=== PATIENT | male | born 1970 | race Hispanic/Latino ===

== ENCOUNTER 2019-09-07 18:41 | Emergency (ER) | payer OTHER ==
[~2019-09-07 18:41] MED LIST: ASPI-555 PO; METF-446 PO; NITR4.1S2 TL; PRAV20TA4 PO; TRAM50TA4 PO; VALS160T29 PO
[2019-09-07] MEDS ORDERED: ASPIRIN 325 MG TABLET ONE (19:00)
[2019-09-07 19:15] LABS: BASOPHILS % (AUTO) 0.3 % (0.0-5.0); EOSINOPHILS % (AUTO) 0.5 % (0.0-8.0); HEMATOCRIT 43.4 % (42-54); LYMPHOCYTES % (AUTO) 4.1 % (21.0-51.0); MEAN CORPUSCULAR HEMOGLOBIN 32.4 pg (27.0-33.0); MEAN CORPUSCULAR HGB CONC 36.9 g/dL (32.0-36.0); MEAN CORPUSCULAR VOLUME 87.9 fL (79-99); MONOCYTES % (AUTO) 5.3 % (3.0-13.0); NEUTROPHILS % (AUTO) 89.5 % (40.0-77.0); PLATELET COUNT (AUTO) 133 K/uL (130-400); RED BLOOD CELL COUNT(AUTO) 4.94 MIL/uL (4.50-6.20); RED CELL DISTRIBUTION WIDTH 12.2 % (11.0-15.5); WHITE BLOOD COUNT (AUTO) 7.4 K/uL (4.8-10.8)
[2019-09-07 19:27] LABS: CREATININE 0.7 mg/dL (0.5-1.5); POTASSIUM 3.8 mmol/L (3.5-5.1)
[2019-09-07 19:33] LABS: ALBUMIN 3.6 g/dL (3.5-5.0); BILIRUBIN,TOTAL 2.5 mg/dL (0.2-1.0)
[2019-09-07 19:37] LABS: INR 0.98 (0.85-1.15); PARTIAL THROMBOPLASTIN TIME 24.3 SEC (26.3-35.5); PROTHROMBIN TIME 10.3 SEC (9.6-11.6)
[2019-09-07 19:49] LABS: B-TYPE NATRIURETIC PEPTIDE < 5 pg/mL (0-100)
[2019-09-07] MEDS ORDERED: SODIUM CHLORIDE 0.9% 1000ML 1,000 ML IV ONE (20:10)
[2019-09-07] MEDS ORDERED: MAG HYDROX/AL HYDROX/SIMETH ES 30 ML SUSP UDCUP ONE (20:11)
[2019-09-07] MEDS ORDERED: KETOROLAC TROMETHAMINE 15MG/ML ONE (20:11)
[2019-09-07] MEDS ORDERED: FAMOTIDINE/PF 20 MG/2 ML VIAL IV ONE (20:12)
[2019-09-07] MEDS ORDERED: LIDOCAINE HCL 2% VISCOUS 15 ML UDCUP ONE (20:12)
[2019-09-07] MEDS ORDERED: IOHEXOL-350 75 ML VIAL IV ONE (20:46)
== END 2019-09-07 22:19 | disposition home or self-care (01) ==
LOC: EDH 18:41
DX: K29.70 Gastritis, unspecified, without bleeding (principal); R07.89 Other chest pain; I10 Essential (primary) hypertension; E11.9 Type 2 diabetes mellitus without complications
CPT/HCPCS: 36415; 71045; 80053; 82550; 83690; 83880; 84484 ×2; 85025; 85610; 85730; 93005 ×2; 96361; 96374; 96375; 99285; J1885; J3490; J7030; Q9967

== ENCOUNTER → 2021-07-18 | Outpatient (CLI) | payer OTHER ==
[~2021-07-18] MED LIST changes: -ASPI-555 PO; +ASPI-556 PO
== END | disposition home or self-care (01) ==
LOC: RAH 09:07
PROVIDERS: ATTEND Family Medicine
DX: T14.90XA Injury, unspecified, initial encounter (principal); M16.11 Unilateral primary osteoarthritis, right hip; M17.12 Unilateral primary osteoarthritis, left knee; M47.816 Spondylosis without myelopathy or radiculopathy, lumbar region; M43.5X6 Other recurrent vertebral dislocation, lumbar region; M41.86 Other forms of scoliosis, lumbar region; X58.XXXA Exposure to other specified factors, initial encounter; Y93.89 Activity, other specified; Y92.89 Other specified places as the place of occurrence of the external cause; Y99.8 Other external cause status
CPT/HCPCS: 72100; 73502; 73562

== ENCOUNTER → 2021-12-14 | Outpatient (CLI) | payer OTHER | END | disposition home or self-care (01) | LOC: LAB 11:22 | PROVIDERS: ATTEND Internal Medicine Cardiovascular Disease | DX: E03.9 Hypothyroidism, unspecified (principal) | CPT/HCPCS: 36415; 84443 ==

== ENCOUNTER 2023-02-11 05:04 | Emergency (ER) | payer OTHER ==
[~2023-02-11] VITALS: Ht 195.6 cm; Wt 111.6 kg
[~2023-02-11 05:04] MED LIST changes: +ACET-2079 PO; +CEPH500C2 PO; +IBUP-2070 PO; +MUPI22OI2 TP
[2023-02-11 05:16] VITALS: BP 137/74; PULSE 78; RESP 16; O2SAT 96
[2023-02-11] MEDS ORDERED: ASPIRIN 325MG TAB PO ONE (05:30)
[2023-02-11 05:31] LABS: BASOPHILS % (AUTO) 0.6 % (0.0-5.0); EOSINOPHILS % (AUTO) 1.2 % (0.0-8.0); MEAN CORPUSCULAR HEMOGLOBIN 32.2 pg (27.0-33.0); MEAN CORPUSCULAR HGB CONC 36.8 g/dL (32.0-36.0); MEAN CORPUSCULAR VOLUME 87.4 fL (79-99); MONOCYTES % (AUTO) 9.3 % (3.0-13.0); NEUTROPHILS % (AUTO) 70.7 % (40.0-77.0); PLATELET COUNT (AUTO) 152 K/uL (130-400); RED BLOOD CELL COUNT(AUTO) 4.69 MIL/uL (4.50-6.20); RED CELL DISTRIBUTION WIDTH 12.3 % (11.0-15.5); WHITE BLOOD COUNT (AUTO) 5.1 K/uL (4.8-10.8)
[2023-02-11 05:38] LABS: CREATININE 0.7 mg/dL (0.5-1.5); POTASSIUM 3.6 mmol/L (3.5-5.1)
[2023-02-11 05:40] LABS: INR 0.96 (0.85-1.15); PROTHROMBIN TIME 11.2 SEC (9.6-11.6)
[2023-02-11 05:42] LABS: PARTIAL THROMBOPLASTIN TIME 26.3 SEC (26.3-35.5)
[2023-02-11 05:48] LABS: ALBUMIN 3.4 g/dL (3.5-5.0); MAGNESIUM 1.6 mg/dL (1.80-2.40); TOTAL PROTEIN, SERUM 6.8 g/dL (6.0-8.3)
[2023-02-11 06:02] LABS: B-TYPE NATRIURETIC PEPTIDE < 5 pg/mL (0-100)
[2023-02-11] MEDS ORDERED: MAGNESIUM 2GM PREMIX 50ML 50 ML IV SCH (08:00)
[2023-02-11] MEDS ORDERED: ACETAMINOPHEN 500 MG TABLET PO PRN (08:30)
[2023-02-11] MEDS ORDERED: ONDANSETRON 4MG INJ IVP PRN (08:30)
[2023-02-11] MEDS ORDERED: PANTOPRAZOLE 40 MG TAB DR PO SCH (09:00)
[2023-02-11 10:17] LABS: HEMOGLOBIN A1C 8.3 % (4.0-6.0)
[2023-02-12] MEDS ORDERED: ASPIRIN 81 MG EC TAB PO SCH (09:00)
== END 2023-02-11 09:04 | disposition left against medical advice (07) ==
LOC: EDH 05:04 → EDHIP 07:57 → UNDOADMOB 07:57 → UNDODISOB 08:25 → EDHIP 09:04
DX: I20.0 Unstable angina (principal); E11.9 Type 2 diabetes mellitus without complications; I10 Essential (primary) hypertension; E78.00 Pure hypercholesterolemia, unspecified; E78.5 Hyperlipidemia, unspecified; Z79.84 Long term (current) use of oral hypoglycemic drugs; Z79.82 Long term (current) use of aspirin; Z79.899 Other long term (current) drug therapy; Z90.49 Acquired absence of other specified parts of digestive tract
CPT/HCPCS: 36415; 71045; 80053; 80061; 83036; 83735; 83880; 84443; 84484; 85025; 85610; 85730; 93005; G0378

== ENCOUNTER 2024-03-07 00:22 | Emergency (ER) | payer OTHER, MEDICARE ==
[~2024-03-07] VITALS: Ht 195.6 cm; Wt 100.7 kg
[2024-03-07 01:10] LABS: BASOPHILS # (AUTO) 0.02 K/uL (0.00-0.20); BASOPHILS % (AUTO) 0.4 % (0.0-5.0); EOSINOPHILS # (AUTO) 0.06 K/uL (0.00-0.70); EOSINOPHILS % (AUTO) 1.1 % (0.0-8.0); HEMATOCRIT 39.7 % (42-54); IMMATURE GRANULOCYTE ABSOLUTE 0.03 K/uL (0-1); LYMPHOCYTES # (AUTO) 1.1 K/uL (1.0-4.8); LYMPHOCYTES % (AUTO) 20.8 % (21.0-51.0); MEAN CORPUSCULAR HEMOGLOBIN 32.7 pg (27.0-33.0); MEAN CORPUSCULAR HGB CONC 37.3 g/dL (32.0-36.0); MEAN CORPUSCULAR VOLUME 87.8 fL (79-99); MONOCYTES # (AUTO) 0.7 K/uL (0.1-1.0); MONOCYTES % (AUTO) 12.4 % (3.0-13.0); NEUTROPHILS # (AUTO) 3.4 K/uL (1.8-7.7); NEUTROPHILS % (AUTO) 64.7 % (40.0-77.0); PLATELET COUNT (AUTO) 167 K/uL (130-400); RED BLOOD CELL COUNT(AUTO) 4.52 MIL/uL (4.50-6.20); RED CELL DISTRIBUTION WIDTH 12.7 % (11.0-15.5); WHITE BLOOD COUNT (AUTO) 5.3 K/uL (4.8-10.8)
[2024-03-07] MEDS: 0.9%NACL 1000ML 1,000 ML IV ONE (01:10)
[2024-03-07] MEDS: MORPHINE 4 MG SYG IVP ONE (01:10)
[2024-03-07] MEDS: ONDANSETRON 4MG INJ IVP ONE (01:10)
[2024-03-07] MEDS: PANTOPRAZOLE 40 MG/VIAL IVP ONE (01:11)
[2024-03-07 01:33] LABS: B-TYPE NATRIURETIC PEPTIDE 8 pg/mL (0-100)
[2024-03-07 01:37] LABS: ALBUMIN 3.3 g/dL (3.5-5.0); BILIRUBIN,TOTAL 1.8 mg/dL (0.2-1.0); CREATININE 0.8 mg/dL (0.5-1.3); POTASSIUM 3.9 mmol/L (3.5-5.1); TOTAL PROTEIN, SERUM 6.6 g/dL (6.0-8.3)
[2024-03-07] MEDS ORDERED: IOHEXOL 350 MG/ML 100ML INFUS..BTL IV ONE (02:57)
[2024-03-07] MEDS: MAG/ALUM/SIMETH 30 ML UDCUP PO ONE (04:58)
[2024-03-07] MEDS: LIDOCAINE HCL 2% VISCOUS 15 ML UDCUP PO ONE (04:58)
[2024-03-07] MEDS: PROMETHAZINE HCL 25 MG/ML 1ML AMPULE IM ONE (04:58)
[2024-03-07] MEDS: DICYCLOMINE HCL 10 MG/5 ML ML PO ONE (04:58)
[2024-03-07 06:10] VITALS: BP 124/78; PULSE 88; RESP 16; O2SAT 99
== END 2024-03-07 06:13 | disposition home or self-care (01) ==
LOC: EDH 00:22
DX: K31.84 Gastroparesis (principal); E11.43 Type 2 diabetes mellitus with diabetic autonomic (poly)neuropathy; I10 Essential (primary) hypertension; E78.00 Pure hypercholesterolemia, unspecified; I48.91 Unspecified atrial fibrillation; M19.90 Unspecified osteoarthritis, unspecified site; Z79.82 Long term (current) use of aspirin; Z79.84 Long term (current) use of oral hypoglycemic drugs; Z79.899 Other long term (current) drug therapy; Z90.49 Acquired absence of other specified parts of digestive tract; Z96.652 Presence of left artificial knee joint; Z98.890 Other specified postprocedural states
CPT/HCPCS: 99285; 74177; 96374; 96375; 71045; 82550; 84484; 80053; 83880; 83690; 85025; 82948; 36415; 93005; 96372; J7030; J2550; J2405; J2270; J2470; Q9967

== ENCOUNTER 2024-03-23 23:49 | Emergency (ER) | payer OTHER, MEDICARE ==
[~2024-03-23] VITALS: Ht 195.6 cm; Wt 102.1 kg
[2024-03-24 00:31] LABS: CREATININE 0.7 mg/dL (0.5-1.3); POTASSIUM 3.1 mmol/L (3.5-5.1)
[2024-03-24 00:34] LABS: INR 1.06 (0.85-1.15); PROTHROMBIN TIME 11.4 SEC (9.6-11.6)
[2024-03-24 00:39] LABS: MAGNESIUM 1.6 mg/dL (1.80-2.40)
[2024-03-24 00:45] LABS: BASOPHILS # (AUTO) 0.03 K/uL (0.00-0.20); BASOPHILS % (AUTO) 0.6 % (0.0-5.0); EOSINOPHILS # (AUTO) 0.09 K/uL (0.00-0.70); EOSINOPHILS % (AUTO) 1.9 % (0.0-8.0); HEMATOCRIT 35.2 % (42-54); IMMATURE GRANULOCYTE ABSOLUTE 0.01 K/uL (0-1); LYMPHOCYTES # (AUTO) 0.9 K/uL (1.0-4.8); MEAN CORPUSCULAR HEMOGLOBIN 33.9 pg (27.0-33.0); MEAN CORPUSCULAR HGB CONC 37.2 g/dL (32.0-36.0); MEAN CORPUSCULAR VOLUME 91.2 fL (79-99); MONOCYTES # (AUTO) 0.5 K/uL (0.1-1.0); MONOCYTES % (AUTO) 9.6 % (3.0-13.0); NEUTROPHILS # (AUTO) 3.2 K/uL (1.8-7.7); NEUTROPHILS % (AUTO) 68.7 % (40.0-77.0); PLATELET COUNT (AUTO) 150 K/uL (130-400); RED BLOOD CELL COUNT(AUTO) 3.86 MIL/uL (4.50-6.20); RED CELL DISTRIBUTION WIDTH 13.2 % (11.0-15.5); WHITE BLOOD COUNT (AUTO) 4.7 K/uL (4.8-10.8)
[2024-03-24 00:51] LABS: PARTIAL THROMBOPLASTIN TIME 26.5 SEC (26.3-35.5)
[2024-03-24 00:55] LABS: ALBUMIN 3.2 g/dL (3.5-5.0); BILIRUBIN,TOTAL 2.2 mg/dL (0.2-1.0); TOTAL PROTEIN, SERUM 6.4 g/dL (6.0-8.3)
[2024-03-24 01:10] LABS: B-TYPE NATRIURETIC PEPTIDE 11 pg/mL (0-100)
[2024-03-24] MEDS: POTASSIUM CHLORIDE 10% ELIXIR 20 MEQ/15 ML UDCUP PO ONE (02:38)
[2024-03-24 02:49] VITALS: BP 150/60; PULSE 96; RESP 16; TEMP 97.6; O2SAT 98
== END 2024-03-24 02:50 | disposition home or self-care (01) ==
LOC: EDH 23:49
DX: I83.893 Varicose veins of bilateral lower extremities with other complications (principal); I10 Essential (primary) hypertension; E78.00 Pure hypercholesterolemia, unspecified; E11.9 Type 2 diabetes mellitus without complications; I48.91 Unspecified atrial fibrillation; M19.90 Unspecified osteoarthritis, unspecified site; Z86.73 Personal history of transient ischemic attack (TIA), and cerebral infarction without residual deficits; Z79.899 Other long term (current) drug therapy; Z79.2 Long term (current) use of antibiotics; Z79.82 Long term (current) use of aspirin; Z79.84 Long term (current) use of oral hypoglycemic drugs; Z90.49 Acquired absence of other specified parts of digestive tract; Z96.652 Presence of left artificial knee joint; Z98.890 Other specified postprocedural states
CPT/HCPCS: 36415; 71045; 80053; 83735; 83880; 84484; 85025; 85610; 85730; 93005; 93971

== ENCOUNTER 2025-01-09 22:21 | Emergency (ER) | payer OTHER, MEDICAID ==
[~2025-01-09] VITALS: Ht 195.6 cm; Wt 108.9 kg
[~2025-01-09 22:21] MED LIST changes: -PRAV20TA4 PO; +PRAV20TA59 PO
[2025-01-09 22:29] VITALS: BP 166/88; PULSE 20; RESP 20; TEMP 98.4; O2SAT 97
[2025-01-09] MEDS: ketOROlac 60 MG VIAL (30MG/ML) IM ONE (22:49)
[2025-01-09] MEDS: HYDROcodone/APAP 5/325 1 TAB TABLET PO ONE (22:50)
[2025-01-09] MEDS ORDERED: MELO-108 PO (23:47)
--- NOTE | 2025-01-09 23:47 | ERN ---
ED Note History of Present Illness Stated Complaint: LEFT KNEE Chief Complaint: Knee Injury/Swelling Time Seen by MD: 22:23 Time Seen by Midlevel: 22:33 Dictation: The patient is a 54-year-old male with past medical history arthritis, hyperlipidemia, hypertension who presents to the emergency department with complaints of nontraumatic left knee pain for two weeks. Patient reports he had a knee surgery done in 2020. Patient denies any fevers. Allergies: Coded Allergies: No Known Allergies (Unverified Allergy, Unknown, 11/10/22) No Known Drug Allergies (Unverified Allergy, Unknown, 10/28/16) Home Meds Active Scripts Acetaminophen with Codeine (Acetaminophen-Cod #3 Tablet) 1 Each Tablet, 1 EACH PO QID for 7 Days, #25 TAB 0 Refills Prov:NELSON AYERS MD 06/07/21 Ibuprofen (Ibuprofen) 600 Mg Tablet, 600 MG PO Q6H PRN for PAIN, #30 TAB 0 Refills Prov:NELSON AYERS MD 06/07/21 Mupirocin (Mupirocin Ointment) 22 Gm Oint, 1 GM TP BID for 10 Days, #30 G Prov:YAQUELIN ABREU 05/24/21 Cephalexin (Cephalexin) 500 Mg Capsule, 500 MG PO TID for 10 Days, #30 CAP Prov:YAQUELIN ABREU 05/24/21 Reported Medications Nitroglycerin (Nitroglycerin) 4.1 Gm [place], 0.4 MG TL AD PRN for CHEST PAIN, CAP 10/28/16 Tramadol Hcl (Tramadol HCl) 50 Mg Tablet, 50 MG PO BID PRN for PAIN LEVEL 5 TO 10, TAB 10/28/16 Aspirin (Aspir 81) 81 Mg Tablet.dr, 81 MG PO DAILY, TAB 10/28/16 Valsartan (Valsartan) 160 Mg Tablet, 160 MG PO DAILY, TAB 10/28/16 Pravastatin Sodium (Pravastatin Sodium) 20 Mg Tablet, 20 MG PO HS, TAB 10/28/16 Metformin HCl (Metformin HCl) 1,000 Mg Tablet, 1000 MG PO BID, TAB 10/28/16 Past Medical History Past Medical History: A-Fib, Arthritis, CVA, Diabetes-Type II, High Cholesterol, Hypertension, TIA Additional Past Medical Hx: HEART ARRYTHMIA Surgical History: Cholecystectomy Surgical History Other: LEFT KNEE TOTAL REPLACEMENT; L4-L5 FUSION, RT HIP Family History: CAD, DM, HTN Social History: ETOH, Lives with family RN Note Reviewed/Agreed w/PFSH: Yes Review of System Dictation Constitutional: Negative for fever,chills, and weight loss Eyes: Negative for injury, pain,redness, and discharge ENT: Negative for injury,pain or swelling Cardiovascular: Negative for chest pain, palpitations, and edema Respiratory: Negative for shortness of breath, cough, and wheezing, Abdomen/GI: Negative for abdominal pain, nausea, vomiting, diarrhea, and constipation Back: Negative for injury and pain : Negative for injury, bleeding and discharge MS/Extremity: Positive for left knee pain Skin: Negative for rash, and discoloration Neuro: Negative for headache, weakness, numbness, tingling, and seizure Psych: Negative for suicide ideation, homicidal ideation, and hallucinations Initial Vital Sign VS Vital Signs Date Time Temp Pulse Resp B/P (MAP) Pulse Ox O2 Delivery O2 Flow Rate FiO2 01/09/25 22:23 98.4 98 20 166/88 97 Room Air 01/09/25 22:29 0 21 Physical Exam Dictation Vital Signs reviewed General Appearance: Alert, oriented x 3, no acute distress, well developed, nourished. Head and Face: non-traumatic. Eyes: PERRL, pink conjunctivas, eyelid no trauma, anterior chamber with arcus senilis. Ears: Pinnas intact and no signs of trauma or erythema ear canals clear and no discharge TM no erythema Nose: No discharge, no bleeding. Oropharynx: Mouth normal, tongue pink. pharynx clear,no erythema, tonsils no exudates, no abscesses noted, mucous membrane moist Neck: Supple, non-tender, no thyromegaly, no masses, no JVD, no bruits Breast:Deferred Chest:No tenderness, no crepitus, no paradoxical movement, no retractions Lungs:Clear, well-ventilated, symmetric, no rales, no wheezing, no rhonchi, no stridor, good breath sounds bilaterally Heart: Regular rate, regular rhythm, no murmur, no gallops Vascular: no peripheral edema, dorsalis pedis 3+ bilaterally Abdomen: Soft, positive bowel sounds, nondistended, no guarding, nontender, no rebound, no masses no hepatomegaly, no splenomegaly, no Santiago's sign, no hernias. Rectal: Deferred Genital: Deferred Neurological: Normal speech, motor function intact, sensory function intact Musculoskeletal: Neck nontender, full range of motion, back nontender, full range of motion, Extremities: nontender, full range of motion left knee tenderness Skin: Color pink, dry, no turgor, no rash, no lacerations, no abrasions, no contusions. Lymphatic: Deferred Results (Laboratory/Radiology) Labs Reviewed?: Yes ED Course ED Course Orders Procedure Category Date Status Time Knee 3vws Lt RAD 01/09/25 Taken 22:36 Ketorolac 60mg/2ml PHA 01/09/25 Complete (Toradol 60mg/2ml) 23:00 Hydrocodone/Apap PHA 01/09/25 Complete 5/325 (Beatrice 5/325mg) 23:00 Current Medications Medications (Trade) Dose Ordered Sig/Janene Route PRN Reason Start Time Stop Time Status Last Admin Dose Admin Acetaminophen/ Hydrocodone Bitart (NORco 5/325MG) 1 tab ONCE ONCE PO 01/09/25 23:00 01/09/25 23:01 DC 01/09/25 22:50 Ketorolac Tromethamine (toRADol 60MG/ 2ML) 60 mg ONCE ONCE IM 01/09/25 23:00 01/09/25 23:01 DC 01/09/25 22:49 Vital Signs Date Time Temp Pulse Resp B/P (MAP) Pulse Ox O2 Delivery O2 Flow Rate FiO2 01/09/25 22:29 98.4 20 20 166/88 97 Room Air* 0 21 01/09/25 22:23 98.4 98 20 166/88 97 Room Air Medical Decision Making MDM The patient is a 54-year-old male with past medical history arthritis, hyperlipidemia, hypertension who presents to the emergency department with complaints of nontraumatic left knee pain for two weeks. Patient reports he had a knee surgery done in 2020. Patient denies any fevers. Chest x-ray showed no obvious fractures or dislocations. On physical exam patient has no swelling or erythema to left knee. No wounds. Full range of motion to extremity. Neurovascularly intact. Patient will be discharged to follow up with orthopedic. Patient agree with discharge planning. Differential diagnosis: Knee fracture, knee dislocation, knee contusion, arthritis Need for hospitalization: Patient does not meet criteria for hospitalization. There are no social concerns with this patient. DX & DISP Disposition: Discharge Departure Impression: Primary Impression: Left knee pain Condition: Stable Scripts Meloxicam (Meloxicam) 15 Mg Tablet 1 TAB PO DAILY for 10 Days, #10 TAB 0 Refills Prov: CAROLANN BUCHANAN JEMMA 01/09/25 Additional Instructions: Your x-ray showed no obvious fractures. Please follow up with Orthopedic in 1-2 days. Take your medications as prescribed. If anything worsen please return to ER. FOLLOW-UP WITH PRIMARY CARE PROVIDER IN 1 TO 2 DAYS. TAKE MEDICATIONS DIRECTED HERE IN THE EMERGENCY ROOM. OKAY TO CONTINUE HOME MEDICATIONS UNLESS OTHERWISE DISCUSSED DURING YOUR VISIT IN THE EMERGENCY ROOM TODAY. RETURN TO YOUR NEAREST EMERGENCY ROOM IF SYMPTOMS WORSEN OR IF THERE IS NO IMPROVEMENT. CALL 911 IF YOU NEED IMMEDIATE ASSISTANCE. TAKE TYLENOL OR MOTRIN OVE [id number] NEEDED AND IF NO CONTRAINDICATIONS ARE PRESENT. INCREASE ORAL HYDRATION. A WOUND CULTURE OR URINE CULTURE WAS ORDERED HERE IN THE EMERGENCY ROOM DEPARTMENT PLEASE FOLLOW-UP WITH PRIMARY CARE PROVIDER AND ADVISE THEM TO GET REPEAT PORTS FROM OUR FACILITY. IF YOU HAD ANY JOSE ANTONIO WRAP/SPLINTS THAT WERE APPLIED HERE, PLEASE DO NOT REMOVE THEM UNTIL YOU SEE YOUR PRIMARY CARE OR SPECIALTY. Referrals: FARHAD BARBA (PCP) VERO CHAVEZ MD Time of Disposition: 23:46 I have reviewed the case, and I agree with, Diagnosis and Plan CAROLANN BUCHANAN TREE GIRDLER Jan 09, 2025 23:47
--- NOTE | 2025-01-10 09:01 | HMCIMG ---
Exam Type: KNEE 3VWS LT Clinical Information: pain Comparison: None Findings: Routine views of the knee are without evidence of fracture, dislocation, arthritic, or inflammatory change. There is status post knee replacement with adequate visualization and alignment of bony and hardware elements. No complications are seen. There are vascular calcifications. The joint space is well maintained and there is no effusion. IMPRESSION: Status post knee replacement.
== END 2025-01-10 00:15 | disposition home or self-care (01) ==
LOC: EDH 22:21
DX: M25.562 Pain in left knee (principal); E11.9 Type 2 diabetes mellitus without complications; E78.00 Pure hypercholesterolemia, unspecified; I10 Essential (primary) hypertension; M19.90 Unspecified osteoarthritis, unspecified site; I48.91 Unspecified atrial fibrillation; Z79.82 Long term (current) use of aspirin; Z79.84 Long term (current) use of oral hypoglycemic drugs; Z79.899 Other long term (current) drug therapy; Z86.73 Personal history of transient ischemic attack (TIA), and cerebral infarction without residual deficits; Z90.49 Acquired absence of other specified parts of digestive tract; Z96.652 Presence of left artificial knee joint
CPT/HCPCS: 99283; 73562; 96372; J1885